=== PATIENT | female | born 1940 | race Caucasian/White ===

== ENCOUNTER 2017-05-15 06:18 | Day surgery (SDC) | payer OTHER, BC ==
--- NOTE | 2017-04-29 15:43 | HP ---
DATE OF ADMISSION: 05/15/2017 DATE OF DICTATION: 04/02/2017 The patient is to be admitted to the [facility] ambulatory surgical service. HISTORY: The patient is a 77-year-old woman who presents to the ambulatory surgical service for excision of an enlarging soft tissue mass involving the superior aspect of the right shoulder of at least 1 to 2 years' duration. Suspect epidermal inclusion cyst. PAST MEDICAL HISTORY: The patient medical history is significant for hypertension, arthritis, cataracts, and ductal carcinoma in situ of the breast. PAST SURGICAL HISTORY: Significant for hernia surgery, lumpectomy, tubal ligation, tonsillectomy, and arthroscopic knee surgery. ALLERGIES: None known. CURRENT MEDICATIONS: Include Losartan/hydrochlorothiazide, labetalol, letrozole , and baby aspirin. SOCIAL HISTORY: Tobacco: The patient did smoke up until 1963. Positive alcohol: One to 3 drinks weekly. FAMILY HISTORY: Siblings with diabetes and hypertension. REVIEW OF SYSTEMS: Otherwise nil. PHYSICAL EXAMINATION: EXTREMITIES: The patient has a 2.5 x 3 cm soft tissue mass involving the supraposterior aspect of the right shoulder. There are no obvious satellite lesions or regional lymphadenopathy. IMPRESSION: Supraposterior right shoulder soft tissue mass/suspect epidermal inclusion cyst. PLAN: Excision. Indications, alternatives, and possible complications were reviewed. Consent obtained. The patient will be seen preoperatively by Dr. Kowalski. Please refer to her notes for those medical details. Humberto [id number] cc: Dr[facility] Makayla Kowalski [facility] SHOREDaniel
[2017-05-08 12:15] VITALS: BMI 35.9
[2017-05-15] MEDS ORDERED: PROPOFOL 20 ML ONE ×2 (07:55)
[2017-05-15] MEDS ORDERED: LIDOCAINE 1%/EPI 1:100000 (20 ML MULTI DOSE VIAL) ONE (08:04)
[2017-05-15] MEDS ORDERED: LIDOCAINE 1%/EPI 1:100000 (50 ML MULTI DOSE VIAL) INF ONE (08:11)
[2017-05-15] MEDS ORDERED: ONDANSETRON 4 MG/2 ML VIAL ONE (08:15)
[2017-05-15] MEDS ORDERED: ROCURONIUM BROMIDE 50 MG/5 ML VIAL ONE (08:22)
[2017-05-15] MEDS ORDERED: BACITRACIN 15 GM TUBE TOPICAL OINTMENT ONE (08:24)
[2017-05-15] MEDS ORDERED: BACITRACIN 15 GM TUBE TOPICAL OINTMENT TP ONE (08:27)
[2017-05-15] MEDS ORDERED: oxyCODONE HCL 5 MG TABLET PO PRN (08:32)
[2017-05-15] MEDS ORDERED: ONDANSETRON 4 MG/2 ML VIAL IVPUSH PRN (08:32)
[2017-05-15] MEDS ORDERED: LACTATED RINGERS SOLUTION 1,000 ML IV SCH (08:45)
[2017-05-15 08:49] VITALS: TEMP 98
--- NOTE | 2017-05-15 09:10 | OP ---
DATE OF OPERATION: 05/15/2017 PREOPERATIVE DIAGNOSIS: Soft tissue mass, right shoulder, suspect epidermal inclusion cyst. POSTOPERATIVE DIAGNOSIS: Soft tissue mass, right shoulder, suspect epidermal inclusion cyst. PROCEDURE: Excision soft tissue mass/epidermal inclusion cyst, right shoulder/intermediate wound closure (4 cm). OPERATING SURGEON: Robert Contreras MD ANESTHESIA: Lidocaine 1% (9 mL)/Nevin LAWRENCE M.D. DESCRIPTION OF PROCEDURE: With the patient in the right lateral decubitus position, right shoulder was prepped and draped in sterile fashion using chlorhexidine. A 4-cm transverse elliptical incision was made about the lesion and deepened into the subcutaneous space. The lesion was excised in its entirety to remove overlying skin and surrounding subcutaneous fat. Adequate hemostasis was secured at the level of the depths of the wound. Ultimately, the wound was closed in layers. The subcutaneous tissues were approximated using interrupted 3-0 chromic sutures. The subcuticular layer was approximated with interrupted 3-0 chromic suture. The skin was approximated using continuous 5-0 nylon suture. Bacitracin and dressings were applied. Procedure was terminated. NEEDLE AND INSTRUMENT COUNTS: Correct. ESTIMATED BLOOD LOSS: Minimal. SPECIMENS: Soft tissue mass, right shoulder. DRAINS: None. Patient tolerated the procedure. The procedure was terminated. ROBERT CONTRERAS M.D. [id number] cc: Lavelle Noonan MD MTDD
[2017-05-15 09:42] VITALS: BP 124/56; PULSE 64
--- NOTE | 2017-05-18 15:47 | PATH ---
Surgical Pathology Report Patient Name: DIANA GREWAL [facility]. Rec. #: [id number] /Age/Gender: 1940 (Age: 77) / F Account: [id number] Location: [facility] Taken: 05/15/2017 Received: 05/15/2017 Reported: 05/18/2017 Physicians: Robert Contreras M.D. Specimen(s) Received SOFT TISSUE MASS-RIGHT SHOULDER SUSPECTED EPIDERMAL INCLUSION CYST Clinical History Benign neoplasm of connective or other soft tissue right shoulder, suspect epidermal inclusion cyst Final Diagnosis SKIN, RIGHT SHOULDER, EXCISION: EPIDERMAL INCLUSION CYST (KERATINOUS CYST). Electronically Signed Roberto Cruz M.D. Gross Description Received in formalin labeled "soft tissue mass right shoulder," is a 3.8 x 2.0 x 1.5 cm irregular, unoriented portion of soft tissue which is surfaced by a 3.8 x 1.4 cm davis, elliptical, unremarkable portion of skin. Sectioning reveals an intact cyst. A cordage sales representative section is submitted in one cassette. 05/15/201705/15/2017
== END 2017-05-15 09:30 | disposition home or self-care (01) ==
LOC: FASU 06:18
PROVIDERS: ATTEND Surgery
PROC: 0JBD0ZX Excision of Right Upper Arm Subcutaneous Tissue and Fascia, Open Approach, Diagnostic (ICD-10-PCS; principal; 2017-05-15 07:59)
DX: L72.0 Epidermal cyst (principal); I10 Essential (primary) hypertension; M19.90 Unspecified osteoarthritis, unspecified site; Z85.3 Personal history of malignant neoplasm of breast
CPT/HCPCS: 88304-TC

== ENCOUNTER 2018-09-08 08:24 | Day surgery (SDC) | payer OTHER, BC ==
[2018-09-02 13:44] VITALS: BMI 35.9
[2018-09-08] MEDS: CYCLOPENTOLATE 2% OPHTH SOLN 2 ML BOTTLE ONE ×3 (09:05→09:15)
[2018-09-08] MEDS: TROPICAMIDE 1% OPHTH SOLN 15 ML BOTTLE ONE ×3 (09:05→09:15)
[2018-09-08] MEDS: PHENYLEPHRINE 2.5% OPHTH SOLN 15 ML BOTTLE ONE ×3 (09:05→09:15)
[2018-09-08] MEDS: CIPROFLOXACIN 0.3% EYE DROPS 5 ML BOTTLE ONE ×3 (09:05→09:15)
[2018-09-08] MEDS ORDERED: MIDAZOLAM HCL 2 MG/2 ML SINGLE DOSE VIAL ONE (10:08)
[2018-09-08] MEDS ORDERED: BSS (NA/CA/MG/K) BALANCED SALT SOLUTION OPHTH SOLN 15 ML BOTTLE ONE (10:11)
[2018-09-08] MEDS ORDERED: CARBACHOL 0.01% INTRA-OCULAR 1.5 ML VIAL ONE (10:11)
[2018-09-08] MEDS ORDERED: NEO/POLYMYX B SULF/DEXAMETH OPHTHALMIC 5ML BOTTLE ONE (10:11)
[2018-09-08 10:58] VITALS: TEMP 98.3
--- NOTE | 2018-09-08 11:49 | OP ---
DATE OF OPERATION: 09/08/2018 OPERATIVE PROCEDURE: Lens phacoemulsification with posterior chamber intraocular lens placement, right eye. PREOPERATIVE DIAGNOSIS: Visually significant cataract of right eye. POSTOPERATIVE DIAGNOSIS: Visually significant cataract of right eye. SURGEON: Charles Murcia MD ANESTHESIA: MAC. ANESTHESIOLOGIST: PROCEDURE: The patient was brought to the operating room and placed under monitored anesthesia care by Anesthesia. A drop of Tetracaine was then placed over the right eye. The patient was then prepped and draped in the usual sterile manner. A speculum was then placed over the right eye. The eye was then well irrigated with copious amounts of BSS (balanced salt solution). The operating microscope was then moved into position. A paracentesis was performed using a 15-degree blade. At this point, 0.5 mL of 1% preservative-free lidocaine was injected into the anterior chamber. Amvisc Plus was then injected into the anterior chamber. A clear corneal incision was then formed using a 2.2-mm keratome. A capsulorrhexis was then performed in a continuous circular fashion beginning with a cystotome, completed with a Utrata forceps. Hydrodissection was then performed using BSS on a cannula. The phaco probe was then introduced through the corneal wound and the cataract was removed using the phaco-chop technique. Approximately 3 seconds of absolute phaco time was used. The remaining cortex was then removed using irrigation and aspiration with an I/A probe. The capsule was then filled with regular Amvisc and the capsule was noted to be intact. A previously selected foldable posterior chamber intraocular lens was then injected into the capsule through the corneal wound using a lens injector. It was then dialed into position using a Sinskey hook. The Amvisc was then removed using irrigation and aspiration. Miostat was then injected through the paracentesis to constrict the pupil. The paracentesis and corneal wound were then hydrated and noted to be watertight. A drop of Maxitrol was then placed over the eye. The speculum was removed and clear shield was taped over the eye. The patient tolerated the procedure well and there were no surgical complications. The patient was asked to follow up in my office the next day. CHARLES MURCIA M.D. [id number]
[2018-09-08 11:58] VITALS: BP 136/72; PULSE 77
[2018-09-08] MEDS ORDERED: ACETAMINOPHEN 325 MG TABLET (FP) PO PRN (13:10)
[2018-09-08] MEDS ORDERED: ONDANSETRON 4 MG/2 ML VIAL IVPUSH PRN (13:10)
[2018-09-08] MEDS ORDERED: LACTATED RINGERS SOLUTION 1,000 ML IV SCH (13:15)
== END 2018-09-08 11:35 | disposition home or self-care (01) ==
LOC: FASU 08:24
PROVIDERS: ATTEND Ophthalmology
PROC: 08RJ3JZ Replacement of Right Lens with Synthetic Substitute, Percutaneous Approach (ICD-10-PCS; principal; 2018-09-08 10:28)
DX: H26.8 Other specified cataract (principal)